=== PATIENT | female | born 1975 | race Caucasian/White ===

== ENCOUNTER 2021-10-29 09:40 | Emergency (ER) | payer MEDICAID ==
[~2021-10-29] VITALS: Ht 167.6 cm; Wt 61.4 kg
[2021-10-29] MEDS ORDERED: ondansetron/PF 4mg/2ml inj IV ONE (10:25)
[2021-10-29] MEDS ORDERED: normal saline 1000ML IV soln IVB ONE (10:25)
--- NOTE | 2021-10-29 10:30 | NUR ---
pt refusing to press charges while she is in hospital. would like to press charges once she gets home. does not want to "deal with [employer] in the hospital"
[2021-10-29] MEDS ORDERED: iohexol 350MG/ML 100ml bottle IV ONE (10:36)
[2021-10-29 10:47] LABS: BASOPHILS # (AUTO) 0.1 X10'3 (0-0.2); BASOPHILS % (AUTO) 0.7 % (0-1); EOSINOPHILS # (AUTO) 0.1 X10'3 (0-0.9); EOSINOPHILS % (AUTO) 0.7 % (0-6); HEMATOCRIT 48.6 % (35.0-45.0); HEMOGLOBIN 16.1 g/dl (12.0-16.0); LYMPHOCYTES % (AUTO) 26.6 % (21-51); MEAN CORPUSCULAR HEMOGLOBIN 31.4 PG (27.0-31.0); MEAN CORPUSCULAR HGB CONC 33.2 g/dL (33.0-36.5); MEAN CORPUSCULAR VOLUME 94.6 FL (78-98); MEAN PLATELET VOLUME 7.1 FL (7.4-10.4); MONOCYTES # (AUTO) 0.5 X10'3 (0-0.9); PLATELET COUNT 303 X10'3 (140-440); RED BLOOD COUNT 5.14 X10'6 (4.20-5.60); RED CELL DISTRIBUTION WIDTH 14.4 % (11.5-14.5); WHITE BLOOD COUNT 7.7 X10'3 (4.5-11.0)
[2021-10-29 11:03] LABS: ALANINE AMINOTRANSFERASE 93 U/L (12-78); ALBUMIN/GLOBULIN RATIO 1.2 (1.1-1.5); ALKALINE PHOSPHATASE 91 IU/L (46-116); ANION GAP 14 (8-16); ASPARTATE AMINO TRANSFERASE 75 U/L (10-37); BILIRUBIN,TOTAL 0.3 MG/DL (0.1-1.0); BLOOD UREA NITROGEN 12 MG/DL (7-18); BUN/CREATININE RATIO 12.2 (6.6-38.0); CALCIUM 8.5 MG/DL (8.5-10.1); CHLORIDE 104 MMOL/L (99-107); CREATININE 0.98 MG/DL (0.40-0.90); ETHANOL 0.197 GM/DL (0.0-0.010); GLUCOSE 100 MG/DL (70-104); POTASSIUM 3.2 MMOL/L (3.5-5.1); SODIUM 141 MMOL/L (135-145); TOTAL CARBON DIOXIDE 22.6 MMOL/L (24-32); TOTAL PROTEIN 7.4 G/DL (6.4-8.2); eGFR 61 ML/MIN
[2021-10-29 11:06] LABS: HCG SERUM QL NEGATIVE
--- NOTE | 2021-10-29 11:26 | NUR ---
PT TO CT, URINE CUP PROVIDED STATES SHE NEEDS TO USE RESTROOM. WHEELED TO CT.
[2021-10-29 11:43] LABS: CLARITY,URINE SLIGHTLY CLOUDY (Clear); COLOR,URINE YELLOW (Yellow); GLUCOSE, URINE NEGATIVE (Neg); KETONES,URINE NEGATIVE (Neg); LEUKOCYTE ESTERASE ,URINE TRACE (Neg); NITRITES, URINE POSITIVE (Neg); OCCULT BLOOD,URINE NEGATIVE (Neg); PH,URINE 5.5 (4.8-8.0); PROTEIN,URINE NEGATIVE (Neg); UROBILINOGEN,URINE 0.2 E.U/dL (0.2-1.0)
[2021-10-29 11:56] LABS: URINE AMPHETAMINE SCREEN POSITIVE (Neg); URINE BARBITUATE SCREEN NEGATIVE (Neg); URINE BENZODIAZEPINES SCREEN NEGATIVE (Neg); URINE CANNABINOID SCREEN POSITIVE (Neg); URINE COCAINE SCREEN NEGATIVE (Neg); URINE METHADONE SCREEN NEGATIVE (Neg); URINE OPIATE SCREEN NEGATIVE (Neg); URINE PHENCYCLIDINE SCREEN NEGATIVE (Neg)
[2021-10-29 11:58] LABS: UA COLLECTION TYPE CLN CATCH MIDSTREAM
[2021-10-29 11:59] LABS: BACTERIA,URINE 4+ /HPF (Neg); MUCUS STRANDS FEW /LPF (Neg); RBC,URINE NONE SEEN /HPF (0-2); SQUAMOUS EPITHELIAL CELL,UR MODERATE /LPF (FEW); WBC,URINE 0-4 /HPF (0-4)
[2021-10-29 12:30] VITALS: BP 136/76
--- NOTE | 2021-10-29 12:37 | NUR ---
pt refusing to go to one safe place. pt refusing bus pass, refusing to call friend, states she does not know numbers. 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 ambulated safetly out of ed.
--- NOTE | 2021-11-02 14:15 | NUR ---
PT CALLED REGARDING LAB WORK ON VISIT OF 10/29. MESSAGE LEFT TO CALL BACK.
--- NOTE | 2021-11-06 08:22 | NUR ---
Per Dr. Smith patients writtens orders are to - if symptomatic call in doxycycine 100 mg PO BID x 7 days - No symptoms she needs to follow up with PMD Patient was called 3 times and a voicemail message was left on listed number with no call back. Letter was sent today to listed address.
== END 2021-10-29 12:44 | disposition home or self-care (01) ==
LOC: ER 09:41
DX: R10.9 Unspecified abdominal pain (principal)
CPT/HCPCS: 36415; 70450; 70496; 70498; 71045; 80053; 80305; 80320; 81001; 84703; 85025; 85610; 86885; 86900; 86901; 87077; 87088; 87186; 96361; 96374; 99285; J2405; J7030; Q9967